=== PATIENT | female | born 1970 | race Asian ===

== ENCOUNTER → 2017-07-06 | Outpatient (CLI) | payer OTHER ==
--- NOTE | 2017-07-06 11:34 | RADIOLOGY REPORT (SQ) ---
EXAM DESCRIPTION: SHOULDER RIGHT 2 OR MORE VIEWS COMPLETED DATE/TIME: 07/06/2017 11:15 am REASON FOR STUDY: PAIN IN R SHOULDER M25.511 PAIN IN RIGHT SHOULDER COMPARISON: None. NUMBER OF VIEWS: Three views. TECHNIQUE: Internal rotation, external rotation, and Y view images acquired of the right shoulder. LIMITATIONS: None. FINDINGS: MINERALIZATION: Normal. BONES: No acute fracture or dislocation. No worrisome bone lesions. JOINTS: No dislocation. VISUALIZED LUNGS AND RIBS: No pneumothorax. No rib fracture. SOFT TISSUES: No radiopaque foreign body. OTHER: No other significant finding. IMPRESSION: NEGATIVE STUDY OF THE RIGHT SHOULDER. NO RADIOGRAPHIC EVIDENCE OF ACUTE INJURY. CONSIDE R MRI FOR FURTHER EVALUATION IF CLINICALLY INDICATED. TECHNICAL DOCUMENTATION: JOB ID: [id number] [employer]- All Rights Reserved
== END ==
LOC: RAD 10:49
PROVIDERS: ATTEND Pain Medicine Interventional Pain Medicine
DX: M25.511 Pain in right shoulder (principal)

== ENCOUNTER → 2017-07-30 | Outpatient (CLI) | payer OTHER ==
--- NOTE | 2017-07-30 14:18 | DRAGON STRESS TEST REPORT ---
EXERCISE TREADMILL TEST. DATE OF PROCEDURE: July 30, 2017 INDICATION: Patient with unspecified chest pain. Coronary risk factors: Hypertension, type 2 diabetes, dyslipidemia Resting EKG: Sinus rhythm, no baseline ST segment changes. Stress EKG: No significant changes noted with with exercise treadmill. Reason for termination: Dyspnea and fatigue. PROCEDURE REPORT: Baseline heart rate: 93 beats per minute with blood pressure of 168/82. Patient had no significant complaints at baseline. Patient was exercised on a standard West protocol. Patient exercised for total of 6 minutes and 10 seconds. Exercise was stopped because of fatigue and shortness of breath and patient request to stop the exercise. Patient denied any chest arm or neck discomfort during the exercise, at peak exercise or in recovery. If automatic blood pressure recorded and if felt not accurate manual blood pressure then were recorded at appropriate intervals. Peak heart rate: 111 bpm, 64 of predicted maximum. Peak blood pressure: 207/84 mmHg. Double product: Adequate kcal Exercise EKG: Showed some baseline artifact during exercise but no significant ST segment changes noted. CONCLUSIONS: Indeterminate stress test due to suboptimal heart rate response. Decreased exercise tolerance. Negative EKG changes with exercise. RECOMMENDATIONS: Recommend pharmacologic nuclear stress test. Aggressive risk factor modification, medical therapy. Consider cardiology consultation if clinically indicated. Jaelyn Madsen M.D., HASMUKH Asp Web Developer roofing apprentice, Board certified in cardiovascular diseases, Nuclear cardiology, Echocardiography Cardiac CT and cardiac MRI Ph. [phone] Ph. [phone] [facility]
== END ==
LOC: SP 08:44
PROVIDERS: ATTEND Internal Medicine
DX: R07.2 Precordial pain (principal); I10 Essential (primary) hypertension; E78.5 Hyperlipidemia, unspecified; E11.9 Type 2 diabetes mellitus without complications
CPT/HCPCS: 93017; 93306

== ENCOUNTER → 2017-08-03 | Outpatient (CLI) | payer OTHER ==
--- NOTE | 2017-08-03 15:35 | RADIOLOGY REPORT (SQ) ---
EXAM DESCRIPTION: MRI RT UPPER JOINT WITHOUT COMPLETED DATE/TIME: 08/03/2017 1:31 pm REASON FOR STUDY: PAIN IN R SHOULDER M25.511 PAIN IN RIGHT SHOULDER COMPARISON: Right shoulder plain films 07/06/2017, 05/08/2011 Right shoulder MRI 06/25/2013 TECHNIQUE: Right shoulder images acquired and stored on PACS. Multiplanar imaging to include fat sen sitive sequences such as T1, water sensitive sequences such as FST2/STIR, cartilage sensitive sequenc es such as FSPD/gradient-echo sequences. LIMITATIONS: Mild motion artifact FINDINGS: BONE MARROW AND CORTEX: No worrisome bone lesions or marrow replacement. No occult fractur es. JOINT OR BURSAL EFFUSION: No significant glenohumeral joint effusion. Small amount of fluid in the s ubacromial/subdeltoid bursa. GLENO-HUMERAL ARTICULATION: Normal articulation. No subluxation. No cystic change. No osteophytes or cartilage loss. ACROMION AND AC JOINT: Type 2 acromion with mild bony spurring and synovial thickening. Mild bony s purring along the undersurface of the acromion narrowing the subacromial space. These changes are be st shown on coronal image 10 and sagittal image 14. ROTATOR CUFF AND INTERVAL: Significant thickening and increased signal in the anterior half of the cedillo praspinatus tendon from tendinopathy. This is best shown on coronal images 6-10, axial images 3 thro ugh 6, and sagittal images 6-10. Infraspinatus, subscapularis intact. No rotator interval tear. No rotator interval thickening to suggest adhesive capsulitis. LABRUM AND BICEPS LABRAL COMPLEX: Intra-articular long head biceps tendon is thickened from tendino luca. No gross superior labral tear or paralabral cyst. REMAINDER OF LABRUM AND IGHL : No gross tear or paralabral cyst formation. Labral evaluation is less than optimal without joint distention. There is thickening of IGHL suggesting adhesive capsulitis. PERIARTICULAR AND ADJACENT SOFT TISSUES: No masses or abnormal nodes. OTHER: No other significant finding. IMPRESSION: Supraspinatus and intra-articular long head biceps tendinopathy Acromioclavicular joint arthropathy Findings suspicious for adhesive capsulitis TECHNICAL DOCUMENTATION: JOB ID: [id number] [email or web address]- All Rights Reserved
== END ==
LOC: RAD 12:42
PROVIDERS: ATTEND Pain Medicine Interventional Pain Medicine
DX: M12.811 Other specific arthropathies, not elsewhere classified, right shoulder (principal); M75.81 Other shoulder lesions, right shoulder

== ENCOUNTER → 2017-09-02 | Outpatient (CLI) | payer OTHER ==
[~2017-09-02] MED LIST: AMINOPHYLLINE INJ/PF 250 MG/10 ML SDV IV ONE; REGADENOSON INJ 0.4 MG/5 ML DISP.SYRIN IV ONE
--- NOTE | 2017-09-02 13:15 | DRAGON STRESS TEST REPORT ---
INTRAVENOUS LEXISCAN CARDIOLITE STRESS TEST USING SINGLE PHOTON EMMISION COMPUTERIZED TOMOGRAPHIC. DATE OF PROCEDURE: September 02, 2017 INDICATION : Chest pain CARDIAC RISK FACTORS: Diabetes, hypertension, dyslipidemia RESTING EKG: Sinus rhythm, no baseline ST segment changes noted STRESS EKG: No significant changes noted with LexiScan bolus REASON FOR TERMINATION: Protocol. PROCEDURE REPORT: Baseline heart rate 85 beats per minute with blood pressure of 152/76. Patient had no significant complaints. Heart rate at 2 minutes post bolus 97 with a blood pressure of 155/76. 3 minutes post bolus heart rate 94 with blood pressure of 156/75. No significant EKG changes were noted. Patient had no significant complaints during the procedure or postprocedure. Patient injected with Aminophyllin 75 mg at 3 minutes or later after Lexiscan bolus. CONCLUSIONS: Normal EKG and hemodynamic response to IV LexiScan. NUCLEAR DATA: At rest the patient was given 12.93 millicuries of technetium 99 sestamibi injected intravenously. As per protocol rest gated SPECT images were obtained. Subsequently the patient was given intravenous LexiScan at a dose of 0.4 mg in 5 mL intravenously, followed by flush with normal saline. Subsequently the stress dose of 35.8 millicuries of technetium 99 sestamibi was injected intravenously. As per protocol stress gated images were obtained. NUCLEAR INTERPRETATION: Both raw and processed data were used for interpretation. Visual, qualitative, computer-generated quantitative data was used. There was good myocardial uptake of technetium compound. Motion artifact and soft tissue attenuations were noted. Increased visceral uptake was noted. Increased breast attenuation artifact noted. Borderline decreased uptake noted and stress images in the mid anterior wall but is felt to be related to differences in breast attenuation artifact. No corresponding wall motion abnormalities were noted. No definitive areas of transient perfusion defect noted. No definitive areas of fixed perfusion defect or scars noted. EKG gated imaging showed LV EF at 61 %, rest and stress gated EF similar visually. T. I D. ratio was 1.16. Lung heart ratio noted to be within normal limits 0.41. No significant extracardiac and abnormal radiotracer activities were noted. RV free wall uptake was noted to be mildly increased. IMPRESSION: Also refer to comments under nuclear interpretation. Also test results needs to be interpreted in the context of pretest probability. 1. There is no definitive scintigraphic evidence of LexiScan induced myocardial ischemia. Mild decreased uptake noted in the mid anterior wall but is felt to be related to differences in breast attenuation artifact. Clinical correlation however is requested. 2. There is no definitive scintigraphic evidence of myocardial infarction/scar. 3. EKG gated imaging shows left ventricular ejection fraction of approximately 61 %. 4. Clinical correlation requested as occasionally single vessel disease or balanced ischemia could be missed. In approximately 10% of the cases Lexiscan may not cause adequate vasodilatory stress. RECOMMENDATIONS: Aggressive risk factor modification, medical therapy. Clinical correlation with echocardiogram derived ejection fraction. Inability to exercise by itself can lead to increased cardiovascular event risks. Consider cardiology consultation and or follow-up if clinically indicated. I AM AVAILABLE FOR CARDIOLOGY CONSULTATION AND FOLLOWUP IF REQUESTED BY PMD Jaelyn Madsen M.D., HASMUKH Risk Compliance Manager sign writer letterer or painter, Board certified in cardiovascular diseases, Nuclear cardiology, Echocardiography Cardiac CT and cardiac MRI Ph. [phone] [facility]ENTER[facility]
== END ==
LOC: RAD 06:40
PROVIDERS: ATTEND Internal Medicine
DX: R07.2 Precordial pain (principal)
CPT/HCPCS: 93017; 78452; A9500; J2785; J0280; Q9969

== ENCOUNTER → 2017-10-05 | Outpatient (CLI) | payer OTHER ==
[2017-10-06 07:42] LABS: HEPATITIS C VIRUS AB <0.1 s/co ratio (0.0-0.9)
[2017-10-06 16:38] LABS: A/G RATIO 0.8 (0.7-1.7); ALBUMIN 2 3.5 g/dL (2.9-4.4); ALPHA-1-ANTITRYPSIN SERUM 121 mg/dL (90-200); ALPHA-1-GLOBULIN 2 0.2 g/dL (0.0-0.4); GAMMA GLOBULIN 1.8 g/dL (0.4-1.8); PROTEIN TOTAL SERUM 7.7 g/dL (6.0-8.5)
== END ==
LOC: LAB 11:17
PROVIDERS: ATTEND Physician Assistant
DX: E88.09 Other disorders of plasma-protein metabolism, not elsewhere classified (principal); R94.5 Abnormal results of liver function studies
CPT/HCPCS: 36415; 82103; 82104; 82728; 83540; 83550; 84165; 86038; 86235; 86256; 86706; 86803; 86804

== ENCOUNTER → 2018-03-30 | Outpatient (CLI) | payer OTHER ==
--- NOTE | 2018-03-30 19:46 | XCELERA REPORT ---
[address] [address] Lower Extremity Arterial Evaluation Name: AMANDA HUIZAR Age: 48 yrs Gender: Female : 1970 Patient Status: Outpatient Patient Location: Study Date: 03/30/2018 11:17 AM Procedure: A color flow and duplex scan of the lower extremity arteries was performed on the right with velocity and waveform anaylsis. Reason For Study: MICHAEL VELAZQUEZD Ordering Physician: ZOHRA SAMANO PA-C Performed By: Asim Sanders Measurements and Calculations Right Left SEWER SEPARATION DESIGNER PSV 111.9 cm/sec Prox PFA PSV -135.8 cm/sec Prox SFA PSV -105.1 cm/sec Mid SFA PSV -107.0 cm/sec Dist SFA PSV -76.2 cm/sec Prox Pop A PSV 39.1 cm/sec Dist OWEN PSV 70.4 cm/sec Dist NITRO MAN PSV 57.5 cm/sec Matt Pedis PSV 15.7 -40.7 cm/sec Right Side Arterial Evaluation Normal velocity and triphasic waveforms noted from the Common Femoral artery to the Popliteal . Biphasic in the infrageniculate vessels. Monophasic in nthe Dorsalis Pedis. Well preserved velocities. 20-49 % stenosis at the below level arteries, sequential disease in the Dorsalis Pedis. Ankle Brachial index is 0.88. Left Side Arterial Evaluation Limited study, DAVID 1.00. Biphasic at the Dorsalis Pedis. Interpretation Summary Moderate hemodynamically significant lesions in the right lower extremity only, on duplex imaging, at rest. Limited study on the left suggests almost normal findings. : ZOHRA SAMANO PA-C > Fran Snow
== END ==
LOC: SP 10:46
PROVIDERS: ATTEND Physician Assistant
DX: I73.9 Peripheral vascular disease, unspecified (principal)
CPT/HCPCS: 93926

== ENCOUNTER → 2018-08-24 | Outpatient (CLI) | payer OTHER ==
--- NOTE | 2018-08-24 15:13 | RADIOLOGY REPORT (SQ) ---
EXAM DESCRIPTION: HIP RIGHT AP/LATERAL COMPLETED DATE/TIME: 08/24/2018 1:35 pm REASON FOR STUDY: PAIN IN RIGHT HIP M25.551 PAIN IN RIGHT HIP COMPARISON: None. NUMBER OF VIEWS: Two views. TECHNIQUE: AP pelvis and additional frog-leg view of the right hip. LIMITATIONS: None. FINDINGS: MINERALIZATION: Normal. RIGHT HIP: Subchondral cystic changes in the lateral aspect of the acetabulum of the right hip. No fracture or dislocation. LEFT HIP: No fracture or dislocation. Subchondral cystic changes in the lateral acetabulum of the le ft hip. PUBIS AND ISCHIUM: No fracture. PELVIS: No fracture. SACRUM: No fracture or dislocation. No worrisome bone lesions. LOWER LUMBAR SPINE: No fracture or dislocation. No worrisome bone lesions. No significant disc disea se. SOFT TISSUES: No findings. OTHER: Surgical metallic clips in the pelvic region. IMPRESSION: 1. Mild degenerative changes at the hips. No acute osseous findings. TECHNICAL DOCUMENTATION: JOB ID: [id number] [employer]- All Rights Reserved Reading location - IP/workstation name: [email or web address]
== END ==
LOC: RAD 12:56
PROVIDERS: ATTEND Pain Medicine Interventional Pain Medicine
DX: M25.551 Pain in right hip (principal)

== ENCOUNTER → 2018-12-13 | Outpatient (CLI) | payer OTHER ==
--- NOTE | 2018-12-13 14:31 | RADIOLOGY REPORT (SQ) ---
EXAM DESCRIPTION: NM GASTRIC EMPTYING STUDY COMPLETED DATE/TIME: 12/13/2018 11:39 am REASON FOR STUDY: GASTROPARESIS K31.84 GASTROPARESIS COMPARISON: Upper GI series 10/06/2015, 09/15/2012 Right upper quadrant ultrasound 05/11/2013 RADIONUCLIDE AND DOSE: 2.2 millicuries Tc-99m Sulfur Colloid. Scrambled egg sandwich The route of agent administration: Oral. TECHNIQUE: 1 minute serial static imaging performed at time of meal, 1 hour, 2 hours, 3 hours, and 4 hours as needed. Once stomach reaches 90% emptying, the test is complete. Image intensity values pl otted with respect to time with linear regression algorithm. LIMITATIONS: None. FINDINGS: Patient was observed for 4 hours. Immediate post meal serves as baseline. Gastric emptying at 30 minutes was 44%. Gastric emptying at 60 minutes was 70% Gastric emptying at 90 minutes was 83%. Gastric emptying at 120 minutes was 91%. Normal values: 60 minutes: 30-90% retained. If less than 30%, abnormally rapid emptying. If greater than 90%, del ayed gastric emptying. 120 minutes: <60% retained. If greater than 60%, delayed gastric emptying. 240 minutes: <10% retained. If greater than 10%, delayed gastric emptying. IMPRESSION: NORMAL GASTRIC EMPTYING. TECHNICAL DOCUMENTATION: JOB ID: [id number] [employer]- All Rights Reserved rev Reading location - IP/workstation name: [email or web address]
== END ==
LOC: RAD 07:45
PROVIDERS: ATTEND Surgery
DX: K31.84 Gastroparesis (principal)
CPT/HCPCS: 78264; A9541

== ENCOUNTER → 2019-02-08 | Outpatient (CLI) | payer OTHER ==
--- NOTE | 2019-02-08 15:56 | RADIOLOGY REPORT (SQ) ---
EXAM DESCRIPTION: MRI CERVICAL SPINE WITHOUT COMPLETED DATE/TIME: 02/08/2019 1:49 pm REASON FOR STUDY: M54.2 CERVICALGIA M54.2 CERVICALGIA COMPARISON: 08/05/2011 TECHNIQUE: Sagittal and Axial imaging includes T1, T2, STIR and gradient echo sequences. LIMITATIONS: None. FINDINGS: ALIGNMENT: There is reversal of the normal cervical lordosis. This has progressed since 2 011. VERTEBRAE: Intact. BONE MARROW: Normal. No marrow replacement or reactive changes. DISCS: There is loss of normal water signal throughout the cervical spine. HARDWARE: There is been anterior fusion at C5-C6. CORD AND BASE OF BRAIN: The cord maintains is normal signal intensity despite compression from calcif ication of the posterior longitudinal ligament. The posterior longitudinal ligament is also thickene d from C2 through C5. SOFT TISSUES: No soft tissue masses. C1-C2: No significant spinal stenosis. C2-C3: There is effacement anterior thecal sac secondary to calcification of the posterior longitudin al ligament neural foramina are patent. C3-C4: Moderate central canal stenosis. Bilateral foraminal narrowing left greater than right due to calcification of the posterior longitudinal ligament. C4-C5: Moderate to severe central stenosis in asymmetric narrowing of the left neural foramina second kirby to calcification of the posterior longitudinal ligament. C5-C6: Postsurgical changes. No high-grade central stenosis or foraminal narrowing. C6-C7: No significant spinal stenosis or exit foraminal stenosis. C7-T1: No significant spinal stenosis or exit foraminal stenosis. UPPER THORACIC: Incompletely imaged. No significant spinal stenosis or exit foraminal stenosis. OTHER: No other significant finding. IMPRESSION: Calcification of the posterior longitudinal ligament resulting and moderate to severe ce ntral stenosis from the C3-4 level through C4-C5. There is bilateral foraminal narrowing at C3-4 lef t greater than right. There is asymmetric narrowing of the left neural foramina at C4-C5. TECHNICAL DOCUMENTATION: JOB ID: [id number]- All Rights Reserved Reading location - IP/workstation name: [email or web address]
== END ==
LOC: RAD 12:44
PROVIDERS: ATTEND Orthopaedic Surgery
DX: M54.2 Cervicalgia (principal)
CPT/HCPCS: 72141

== ENCOUNTER → 2019-05-06 | Outpatient (CLI) | payer OTHER ==
[2019-05-06 12:21] LABS: HEMATOCRIT 44.2 % (36.0-47.0); MEAN CORPUSCULAR HEMOGLOBIN 29.9 pg (27.0-33.4); MEAN CORPUSCULAR HGB CONC 33.9 g/dL (32.0-36.0); MEAN CORPUSCULAR VOLUME 88 fl (80-97); PLATELET COUNT 294 10^3/uL (150-450); RED BLOOD COUNT 5.02 10^6/uL (3.72-5.28); RED CELL DISTRIBUTION WIDTH 13.8 % (11.5-14.0); WHITE BLOOD COUNT 9.4 10^3/uL (4.0-10.5)
[2019-05-06 12:30] LABS: INTERNATIONAL RATION (INR) 1.05; PROTHROMBIN TIME 14.2 SEC (11.4-15.4)
[2019-05-06 12:46] LABS: ANION GAP 10 (5-19); BLOOD UREA NITROGEN 15 mg/dL (7-20); CALCIUM 9.7 mg/dL (8.4-10.2); CARBON DIOXIDE 30 mmol/L (22-30); CHLORIDE 104 mmol/L (98-107); GLUCOSE 189 mg/dL (75-110); POTASSIUM 4.2 mmol/L (3.6-5.0); SODIUM 143.5 mmol/L (137-145)
== END ==
LOC: OD 11:38
PROVIDERS: ATTEND Internal Medicine Cardiovascular Disease
DX: I73.9 Peripheral vascular disease, unspecified (principal); I10 Essential (primary) hypertension
CPT/HCPCS: 36415; 80048; 83735; 85027; 85610

== ENCOUNTER → 2019-05-06 | Outpatient (CLI) | payer OTHER ==
--- NOTE | 2019-05-06 12:20 | RADIOLOGY REPORT (SQ) ---
EXAM DESCRIPTION: ANKLE LEFT COMPLETE COMPLETED DATE/TIME: 05/06/2019 12:02 pm REASON FOR STUDY: PAIN IN LEFT ANKLE AND JOINTS OF LEFT FOOT M25.572 PAIN IN LEFT ANKLE AND JOINTS OF LEFT FOOT COMPARISON: None. NUMBER OF VIEWS: Three views. TECHNIQUE: AP, lateral, and oblique radiographic images acquired of the left ankle. LIMITATIONS: None. FINDINGS: MINERALIZATION: Normal. BONES: Slight irregularity of both the medial and lateral malleoli. This may be from prior injury. No evidence of an acute fracture dislocation. JOINTS: No effusions. SOFT TISSUES: Soft tissue swelling medially. OTHER: Small calcaneal osteophytes are present. IMPRESSION: Soft tissue swelling medially. Slight irregularity of both the medial and lateral malle ivonne consistent with old injuries. No acute fracture. TECHNICAL DOCUMENTATION: JOB ID: [id number] [employer]- All Rights Reserved Reading location - IP/workstation name: [email or web address]
== END ==
LOC: OD 11:30
PROVIDERS: ATTEND Internal Medicine
DX: M25.572 Pain in left ankle and joints of left foot (principal)

== ENCOUNTER → 2019-06-08 | Outpatient (CLI) | payer OTHER ==
[2019-06-08 14:38] LABS: ABSOLUTE BASOPHILS # (AUTO) 0.1 10^3/uL (0.0-0.2); ABSOLUTE EOSINOPHILS # (AUTO) 0.2 10^3/uL (0.0-0.6); ABSOLUTE LYMPHOCYTES (AUTO) 2.1 10^3/uL (0.5-4.7); ABSOLUTE MONOCYTES (AUTO) 0.6 10^3/uL (0.1-1.4); ABSOLUTE NEUT (AUTO) 4.6 10^3/uL (1.7-8.2); BASOPHILS % (AUTO) 0.9 % (0-2); EOSINOPHILS % (AUTO) 3.2 % (0-6); HEMATOCRIT 46.9 % (36.0-47.0); HEMOGLOBIN 15.8 g/dL (12.0-15.5); LYMPHOCYTES % (AUTO) 28.1 % (13-45); MEAN CORPUSCULAR HEMOGLOBIN 29.1 pg (27.0-33.4); MEAN CORPUSCULAR HGB CONC 33.7 g/dL (32.0-36.0); MEAN CORPUSCULAR VOLUME 87 fl (80-97); MONOCYTES % (AUTO) 7.6 % (3-13); PLATELET COUNT 281 10^3/uL (150-450); RED BLOOD COUNT 5.43 10^6/uL (3.72-5.28); RED CELL DISTRIBUTION WIDTH 14.3 % (11.5-14.0); SEGMENTED NEUTROPHILS % (AUTO) 60.2 % (42-78); TOTAL CELLS COUNTED % (AUTO) 100 %; WHITE BLOOD COUNT 7.6 10^3/uL (4.0-10.5)
[2019-06-08 14:40] LABS: PROTHROMBIN TIME 12.1 SEC (11.4-15.4)
[2019-06-08 15:01] LABS: ANION GAP 10 (5-19); BLOOD UREA NITROGEN 21 mg/dL (7-20); CALCIUM 9.5 mg/dL (8.4-10.2); CARBON DIOXIDE 25 mmol/L (22-30); CHLORIDE 106 mmol/L (98-107); GLUCOSE 176 mg/dL (75-110); POTASSIUM 4.3 mmol/L (3.6-5.0)
== END ==
LOC: OD 13:46
PROVIDERS: ATTEND Internal Medicine Cardiovascular Disease
DX: I73.9 Peripheral vascular disease, unspecified (principal)
CPT/HCPCS: 36415; 80048; 83735; 85025; 85610

== ENCOUNTER 2020-03-25 12:29 | Emergency (ER) | payer OTHER ==
--- NOTE | 2020-03-25 12:50 | ER Document Report ---
ED Extremity Problem, Upper - General Chief Complaint: Arm Pain Stated Complaint: RIGHT HAND AND ARM PAIN Time Seen by Provider: 03/25/20 12:45 Primary Care Provider: FRANCK MURRY MD [Primary Care Provider] - Follow up as needed Mode of Arrival: Wheelchair Information source: Patient Notes: 50-year-old female presented to ED for complaint of pain and swelling to her right wrist hand and arm. She states it started on Thursday and is much worse today. She states she has a history of carpal tunnel syndrome. She states she has oxycodone for her chronic pain and she took it about 6 hours ago with no relief. She states she does have a history of carpal tunnel high blood pressure diabetes and neck surgery. She is on pain management. Will get x-ray of the wr ist and hand treat her with cock-up splint and then reassess her pain. Patient will also be given ice and elevation for her discomfort. TRAVEL OUTSIDE OF THE [place] IN LAST 30 DAYS: No - HPI Patient complains to provider of: Right, Hand, Wrist Onset: Other - Thursday Recent injury: No Where: Home, Indoors Quality of pain: Sharp, Throbbing Severity of pain: Severe Pain Level: 5 Exacerbated by: Movement, Exertion Relieved by: Nothing Similar symptoms previously: Yes Recently seen / treated by doctor: No - Related Data Allergies/Adverse Reactions: Iodinated Contrast Media [IV Dye, Iodine Containing] Allergy (Verified 03/25/20 12:39) ITCHING, HIVES Past Medical History - General Information source: Patient - Social History Smoking Status: Never Smoker Chew tobacco use (# tins/day): No Frequency of alcohol use: None Drug Abuse: None Family History: Reviewed & Not Pertinent Patient has homicidal ideation: No - Past Medical History Cardiac Medical History: Reports: Hx Hypertension - SINCE I993 Pulmonary Medical History: Reports: None EENT Medical History: Reports: None Endocrine Medical History: Reports: Hx Diabetes Mellitus Type 2 Renal/ Medical History: Reports: None Malignancy Medical History: Reports: None GI Medical History: Reports: None Musculoskeletal Medical History: Reports Hx Musculoskeletal Deformity, Reports Other - Carpal tunnel Skin Medical History: Reports None Psychiatric Medical History: Reports: None Traumatic Medical History: Reports: None Infectious Medical History: Reports: None Past Surgical History: Reports: Hx Hysterectomy, Hx Orthopedic Surgery - shoulder, cervical, Hx Tonsillectomy - REMOVE IN 1989 - Immunizations Hx Diphtheria, Pertussis, Tetanus Vaccination: Yes Review of Systems - Review of Systems Constitutional: No symptoms reported EENT: No symptoms reported Cardiovascular: No symptoms reported Respiratory: No symptoms reported Gastrointestinal: No symptoms reported Genitourinary: No symptoms reported Female Genitourinary: No symptoms reported Musculoskeletal: Other - Swelling and pain to the left wrist and hand Skin: No symptoms reported Hematologic/Lymphatic: No symptoms reported Neurological/Psychological: No symptoms reported -: Yes All other systems reviewed and negative Physical Exam - Vital signs Vitals: Temp Pulse Resp BP Pulse Ox 99.7 F 94 16 185/81 H 98 03/25/20 12:37 03/25/20 12:37 03/25/20 12:37 03/25/20 12:37 03/25/20 12:37 Interpretation: Normal - General General appearance: Appears well, Alert - HEENT Head: Normocephalic, Atraumatic Eyes: Normal Pupils: PERRL - Respiratory Respiratory status: No respiratory distress Chest status: Nontender Breath sounds: Normal Chest palpation: Normal - Cardiovascular Rhythm: Regular Heart sounds: Normal auscultation Murmur: No - Abdominal Inspection: Normal Distension: No distension Bowel sounds: Normal Tenderness: Nontender Organomegaly: No organomegaly - Back Back: Normal, Nontender - Extremities General upper extremity: Nontender, Normal temperature General lower extremity: Normal inspection, Nontender, Normal color, Normal ROM, Normal temperature, Normal weight bearing. No: Roxy's sign Wrist: Tender, Limited ROM - To pain Hand: Tender, No evidence of human bite, No evidence of FB, Swelling - Neurological Neuro grossly intact: Yes Cognition: Normal Orientation: AAOx4 Brutus Coma Scale Eye Opening: Spontaneous Brutus Coma Scale Verbal: Oriented Brutus Coma Scale Motor: Obeys Commands Brutus Coma Scale Total: 15 Speech: Normal Motor strength normal: LUE, RUE, LLE, RLE Sensory: Normal - Psychological Associated symptoms: Normal affect, Normal mood - Skin Skin Temperature: Warm Skin Moisture: Dry Skin Color: Normal Course - Re-evaluation Re-evalutation: 03/25/20 13:32 Discussed x-rays with patient. Discussed need to follow-up with chronic pain management doctor and or an account support specialist for her pain. Patient has oxycodone and she did not tizanidine at home. She states these are not helping her pain. She was given a cock-up splint and ice pack for her discomfort. - Vital Signs Vital signs: Temp Pulse Resp BP Pulse Ox 99.7 F 94 16 185/81 H 98 03/25/20 12:39 03/25/20 12:37 03/25/20 12:37 03/25/20 12:37 03/25/20 12:37 - Diagnostic Test Radiology reviewed: Image reviewed, Reports reviewed Procedures - Immobilization Right Wrist Time completed: 13:00 Immobilizer type: Cock-up Performed by: PCT Post-Proc Neuro Vasc Exam: Normal, Unchanged from pre-exam Alignment checked and good: Yes Discharge - Discharge Clinical Impression: Pain and swelling of right wrist, Pain in right hand Condition: Stable Disposition: HOME, SELF-CARE Additional Instructions: You were seen today for pain and swelling to the right hand and wrist. Your x-ray does not show any acute radiological injuries or swelling to the hand or wrist. You state you have a history of carpal tunnel and you are on chronic pain man agement. Chronic Pain Control Stress, inactivity, and depression make pain more severe regardless of the cause of the pain. Stress and poor physical condition can cause pain such as headaches and backache. Relaxation: Rest in a quiet place with your eyes closed for 20 minutes twice daily. Concentrate on a pleasant image, or simply "feel" your breathing. Clear your mind. Stress management: Deal with your "stressors." Either take action, or eliminate the stressor from your life. Don't let things hang over you. Accept those things you can't change. Nutrition: Eat small, balanced meals -- don't skip, don't overeat. Meals should be high-carbohydrate, low-sugar, low-fat. Exercise: Exercise helps painful conditions and eases stress. Get 30 minutes of moderate exercise, five days a week. Do an activity that does not flare your pain. Precautions: Pain which continues to disrupt daily activities, or which changes in nature, requires a medical evaluation. Pain Clinic referral is available. We do not manage chronic pain in the Emergency Department. We will try to appropriately help you through an acute flare of your chronic painful condition, but for on-going chronic pain that does not improve, you will need to see your private doctor or paint prepper. We do not provide repeated medication management of chronic painful conditions. If you wish, we can provide the name of local pain management physicians. Ice & Elevation Apply ice packs frequently against the painful area. Many different schedules are recommended, such as "20 minutes on, 20 minutes off" or "one hour ice, two hours rest." If you need to work, you may need to go longer between ice treatments. You should plan to have the area ice packed AT LEAST one-fourth of the time. The ice should be applied over the wrap, tape, or splint, or over a layer of cloth -- not directly against the skin. Some ice bags have a built-in cloth and can be put directly on the skin. Your injured part should be elevated as much as possible over the next 48 hours. Try to keep the injury above the level of the heart. Avoid use of the injured area. Elevation and rest will decrease the swelling. We have placed a cock-up splint onto the wrist will help to decrease the pain and movement. You will need to follow-up with an account support specialist and your pain management doctor for continued pain. FOLLOW-UP CARE: If you have been referred to a physician for follow-up care, call the physicians office for an appointment as you were instructed or within the next two days. If you experience worsening or a significant change in your symptoms, notify the physician immediately or return to the Emergency Department at any time for re-evaluation. Forms: Elevated Blood Pressure Referrals: FRANCK MURRY MD [Primary Care Provider] - Follow up as needed MAR NIX DO [ACTIVE STAFF] - Follow up as needed
--- NOTE | 2020-03-25 13:16 | RADIOLOGY REPORT (SQ) ---
EXAM DESCRIPTION: HAND RIGHT 3 VIEWS; WRIST RIGHT 3 VIEWS IMAGES COMPLETED DATE/TIME: 03/25/2020 11:58 am REASON FOR STUDY: Pain and swelling. No known injury. History of carpal tunnel surgery. COMPARISON: None. EXAM PARAMETERS: NUMBER OF VIEWS: Six views. TECHNIQUE: AP, lateral and oblique radiographic images acquired of the right hand and wrist. LIMITATIONS: None. FINDINGS: MINERALIZATION: Normal. BONES: No acute fracture or dislocation. No worrisome bone lesions. JOINTS: No effusions. SOFT TISSUES: No soft tissue swelling. No foreign body. OTHER: No other significant finding. IMPRESSION: No radiographic abnormality of the right hand or wrist. TECHNICAL DOCUMENTATION: JOB ID: [id number] 2010 [employer]- All Rights Reserved Reading location - IP/workstation name: [email or web address]
--- NOTE | 2020-03-25 13:16 | RADIOLOGY REPORT (SQ) ---
EXAM DESCRIPTION: HAND RIGHT 3 VIEWS; WRIST RIGHT 3 VIEWS IMAGES COMPLETED DATE/TIME: 03/25/2020 11:58 am REASON FOR STUDY: Pain and swelling. No known injury. History of carpal tunnel surgery. COMPARISON: None. EXAM PARAMETERS: NUMBER OF VIEWS: Six views. TECHNIQUE: AP, lateral and oblique radiographic images acquired of the right hand and wrist. LIMITATIONS: None. FINDINGS: MINERALIZATION: Normal. BONES: No acute fracture or dislocation. No worrisome bone lesions. JOINTS: No effusions. SOFT TISSUES: No soft tissue swelling. No foreign body. OTHER: No other significant finding. IMPRESSION: No radiographic abnormality of the right hand or wrist. TECHNICAL DOCUMENTATION: JOB ID: [id number] 2010 [employer]- All Rights Reserved Reading location - IP/workstation name: [email or web address]
[2020-03-25 13:25] VITALS: BP 154/71
== END 2020-03-25 13:32 | disposition home or self-care (01) ==
LOC: ER 12:29
DX: M79.641 Pain in right hand (principal); M25.531 Pain in right wrist; M79.89 Other specified soft tissue disorders; G89.29 Other chronic pain; Z79.891 Long term (current) use of opiate analgesic; I10 Essential (primary) hypertension; E11.9 Type 2 diabetes mellitus without complications; Z91.041 Radiographic dye allergy status; Z87.39 Personal history of other diseases of the musculoskeletal system and connective tissue
CPT/HCPCS: 99283

== ENCOUNTER → 2020-06-23 | Outpatient (CLI) | payer OTHER ==
[2020-06-23 10:22] LABS: HEMATOCRIT 44.9 % (36.0-47.0); HEMOGLOBIN 15.3 g/dL (12.0-15.5); MEAN CORPUSCULAR HEMOGLOBIN 30.3 pg (27.0-33.4); MEAN CORPUSCULAR HGB CONC 34.1 g/dL (32.0-36.0); MEAN CORPUSCULAR VOLUME 89 fl (80-97); PLATELET COUNT 288 10^3/uL (150-450); RED BLOOD COUNT 5.06 10^6/uL (3.72-5.28); RED CELL DISTRIBUTION WIDTH 14.4 % (11.5-14.0)
[2020-06-23 10:42] LABS: ANION GAP 8 (5-19); BLOOD UREA NITROGEN 23 mg/dL (7-20); CALCIUM 9.9 mg/dL (8.4-10.2); CARBON DIOXIDE 28 mmol/L (22-30); CHLORIDE 103 mmol/L (98-107); GLUCOSE 172 mg/dL (75-110); POTASSIUM 5.1 mmol/L (3.6-5.0)
[2020-06-24 07:29] LABS: ABSOLUTE MONOCYTES # (MANUAL) 0.4 10^3/uL (0.1-1.4); ANISOCYTOSIS 1+; BASOPHILS % (MANUAL) 0 % (0-2); EOSINOPHILS % (MANUAL) 4 % (0-6); LYMPHOCYTES % (MANUAL) 37 % (13-45); MONOCYTES % (MANUAL) 5 % (3-13); NUCLEATED RED BLOOD CELLS 1 /100 WBC (0); PLATELET COMMENT ADEQUATE; POLYCHROMASIA 1+; SEGMENTED NEUTROPHILS % (MAN) 54 % (42-78); TOTAL CELLS COUNTED 100
== END ==
LOC: OD 09:07
PROVIDERS: ATTEND Internal Medicine Cardiovascular Disease
DX: I73.9 Peripheral vascular disease, unspecified (principal); I10 Essential (primary) hypertension; E78.00 Pure hypercholesterolemia, unspecified; E78.5 Hyperlipidemia, unspecified
CPT/HCPCS: 36415; 80048; 83735; 85025; 85027

== ENCOUNTER 2020-06-29 13:27 | Emergency (ER) | payer OTHER ==
--- NOTE | 2020-06-29 14:55 | ER Document Report ---
ED Medical Screen (RME) - General Chief Complaint: Groin Pain Stated Complaint: LEG PAIN/POST OP CHECK Time Seen by Provider: 06/29/20 14:37 Primary Care Provider: FRANCK SNOW MD [Primary Care Provider] - Follow up as needed Mode of Arrival: Ambulatory TRAVEL OUTSIDE OF THE [place] IN LAST 30 DAYS: No - HPI Notes: 06/29/20 14:51 50-year-old female with a history of type 2 diabetes presents to the emergency room for complaints of left groin pain and SOB status post having a left femoral angiogram for PVD 2 days ago at [facility] by Dr. Snow. Patient states that she feels like "walking with a razor blades" every time she moves or walks which started yesterday along with SOB. This is the second time she has had an angiogram for PVD due to occlusion on the left. Patient is unsure if she has had a stent placed or not. Has been taking Plavix since her surgery. Denies any dysuria, urinary or bowel incontinence's, saddle anesthesia. Patient called surgeon's office they advised her to go to the nearest hospital for further evaluation. I have greeted and performed a rapid initial assessment of this patient. A comprehensive ED assessment and evaluation of the patient, analysis of test results and completion of the medical decision making process will be conducted by additional ED providers. PHYSICAL EXAMINATION: GENERAL: Well-appearing, well-nourished and in no acute distress. CV: s1, s2 regular LUNGS: No respiratory distress NEUROLOGICAL: Normal speech, normal gait. SKIN: Warm, Dry, normal turgor, no rashes or lesions noted. distal pulses +2 in right, distal pulses diminished in right. skin warm to touch, cap refill < 3 seconds bilaterally and equally ' Unable to palpate femoral pulses due to patient being wheelchair and unable to lay her flat in bed due to being in triage. Patient will need to be evaluated in the back for further complete physical examination 06/29/20 14:53 - Related Data Allergies/Adverse Reactions: Iodinated Contrast Media [IV Dye, Iodine Containing] Allergy (Verified 06/29/20 14:36) ITCHING, HIVES Past Medical History - Social History Chew tobacco use (# tins/day): No Drug Abuse: None - Past Medical History Cardiac Medical History: Reports: Hx Hypertension - SINCE I993 Endocrine Medical History: Reports: Hx Diabetes Mellitus Type 1, Hx Diabetes Mellitus Type 2 Musculoskeltal Medical History: Reports Hx Musculoskeletal Deformity Past Surgical History: Reports: Hx Hysterectomy, Hx Orthopedic Surgery - shoulder, cervical, Hx Tonsillectomy - REMOVE IN 1989 - Immunizations Hx Diphtheria, Pertussis, Tetanus Vaccination: Yes Physical Exam - Vital signs Vitals: Temp Pulse Resp BP Pulse Ox 98.7 F 81 18 139/59 H 100 06/29/20 13:31 06/29/20 13:31 06/29/20 13:31 06/29/20 13:31 06/29/20 13:31 Course - Vital Signs Vital signs: Temp Pulse Resp BP Pulse Ox 98.7 F 81 18 139/59 H 100 06/29/20 13:31 06/29/20 13:31 06/29/20 13:31 06/29/20 13:31 06/29/20 13:31 Doctor's Discharge - Discharge Referrals: FRANCK SNOW MD [Primary Care Provider] - Follow up as needed
[2020-06-29] MEDS ORDERED: HYDROCODONE/ACETAMINOPHEN 5-325 MG TABLET PO ONE (14:58)
[2020-06-29 15:23] LABS: INTERNATIONAL RATION (INR) 1.14; PROTHROMBIN TIME 14.8 SEC (11.4-15.4)
[2020-06-29 15:24] LABS: ABSOLUTE EOSINOPHILS # (AUTO) 0.2 10^3/uL (0.0-0.6); ABSOLUTE LYMPHOCYTES (AUTO) 1.7 10^3/uL (0.5-4.7); ABSOLUTE NEUT (AUTO) 7.2 10^3/uL (1.7-8.2); BASOPHILS % (AUTO) 0.4 % (0-2); EOSINOPHILS % (AUTO) 2.3 % (0-6); HEMATOCRIT 45.3 % (36.0-47.0); HEMOGLOBIN 15.2 g/dL (12.0-15.5); LYMPHOCYTES % (AUTO) 17.1 % (13-45); MEAN CORPUSCULAR HEMOGLOBIN 30.4 pg (27.0-33.4); MEAN CORPUSCULAR HGB CONC 33.6 g/dL (32.0-36.0); MEAN CORPUSCULAR VOLUME 90 fl (80-97); MONOCYTES % (AUTO) 9.6 % (3-13); PARTIAL THROMBOPLASTIN TIME 31.2 SEC (23.5-35.8); PLATELET COUNT 289 10^3/uL (150-450); RED BLOOD COUNT 5.01 10^6/uL (3.72-5.28); RED CELL DISTRIBUTION WIDTH 14.8 % (11.5-14.0); SEGMENTED NEUTROPHILS % (AUTO) 70.6 % (42-78); TOTAL CELLS COUNTED % (AUTO) 100 %; WHITE BLOOD COUNT 10.3 10^3/uL (4.0-10.5)
[2020-06-29 15:33] LABS: ALKALINE PHOSPHATASE 117 U/L (38-126); ANION GAP 10 (5-19); ASPARTATE AMINO TRANSFERASE 40 U/L (14-36); BILIRUBIN,TOTAL 0.5 mg/dL (0.2-1.3); BLOOD UREA NITROGEN 20 mg/dL (7-20); CALCIUM 9.6 mg/dL (8.4-10.2); CARBON DIOXIDE 28 mmol/L (22-30); CHLORIDE 101 mmol/L (98-107); GLUCOSE 276 mg/dL (75-110); POTASSIUM 4.6 mmol/L (3.6-5.0); TOTAL PROTEIN 7.7 g/dL (6.3-8.2)
--- NOTE | 2020-06-29 19:45 | RADIOLOGY REPORT (SQ) ---
EXAM DESCRIPTION: US LOWER EXTREMITY ARTERIES LIMITED/UNILATERAL/FOLLOW UP COMPLETED DATE/TME: 06/29/2020 14:48 CLINICAL HISTORY: 50 years, Female, had L angiogram x2dago, severe pain L groin COMPARISON: None. TECHNIQUE: Grayscale and Doppler imaging of the left lower extremity arterial system was performed. LIMITATIONS: None. FINDINGS: No significant plaque formation is identified on the images provided. There is biphasic waveform morphology within the common femoral and profundus femoris arteries. There is monophasic wave form morphology from the superficial femoral artery distally. There is no significant peak systolic velocity elevation. IMPRESSION: Waveform morphologic changes suggesting evidence of peripheral arterial disease. There is no abnormal uptake systolic velocity elevation to suggest a hemodynamically significant stenosis of greater than 50% at this time. copyright 2010 [employer]- All Rights Reserved
[2020-06-29] MEDS ORDERED: METHYLPREDNISOLONE INJ 125 MG/2 ML SDV IV ONE ×2 (19:54→22:47)
[2020-06-29] MEDS ORDERED: DIPHENHYDRAMINE HCL 50 MG/ML VIAL IV ONE ×2 (19:54→22:53)
[2020-06-29] MEDS ORDERED: ONDANSETRON HCL INJ/PF 4 MG/2 ML SDV IV ONE (19:54)
[2020-06-29] MEDS ORDERED: MORPHINE SULFATE 10 MG/ML INJ IV ONE (19:54)
--- NOTE | 2020-06-29 20:34 | EKG REPORT ---
SEVERITY:- BORDERLINE ECG - SINUS RHYTHM NONSPECIFIC ST-T CHANGES LATERAL LEADS : Confirmed by: Leighton Santos MD 29-Jun-2020 20:33:44
--- NOTE | 2020-06-29 22:36 | RADIOLOGY REPORT (SQ) ---
EXAM DESCRIPTION: US EXTREMITY VEINS UNILATERAL COMPLETED DATE/TME: 06/29/2020 21:05 CLINICAL HISTORY: 50 years, Female, LLE pain recent surg COMPARISON: None. TECHNIQUE: Transverse longitudinal sonographic images of the left lower extremity deep venous system LIMITATIONS: None. FINDINGS: No visible areas of thrombus. Normal compression and augmentation throughout. Doppler images are unremarkable IMPRESSION: Negative exam copyright 2010 [employer]- All Rights Reserved
--- NOTE | 2020-06-29 22:47 | ER Document Report ---
ED General - General Chief Complaint: Groin Pain Stated Complaint: LEG PAIN/POST OP CHECK Time Seen by Provider: 06/29/20 14:37 Primary Care Provider: FRANCK MURRY MD [ASSOCIATE] - Follow up as needed Mode of Arrival: Ambulatory TRAVEL OUTSIDE OF THE [place] IN LAST 30 DAYS: No - HPI Notes: 50-year-old female history of diabetes, PVD, on Eliquis for unknown indication presents with pain in left upper leg/thigh wound that started after having exploratory femoral angiogram in bilateral legs 2 days ago. Patient thinks that procedure was done for right leg and that left leg was done for diagnostic purposes but no therapy was performed. Patient did not have any pain in left leg prior to the procedure. Midlevel provider RME note says patient felt short of breath when her pain was bad when walking but patient denies this to me saying that she has had no chest pain or shortness of breath since this pain began. Patient denies any fever, back pain, trauma, change in her anticoagulation meds, lower extremity edema, rash, vomiting - Related Data Allergies/Adverse Reactions: Iodinated Contrast Media [IV Dye, Iodine Containing] Allergy (Verified 06/29/20 14:36) ITCHING, HIVES Past Medical History - General Information source: Patient, Relative - Social History Smoking Status: Former Smoker Chew tobacco use (# tins/day): No Drug Abuse: None Family History: Reviewed & Not Pertinent Patient has homicidal ideation: No - Past Medical History Cardiac Medical History: Reports: Hx Hypertension - SINCE I993 Endocrine Medical History: Reports: Hx Diabetes Mellitus Type 1, Hx Diabetes Mellitus Type 2 Musculoskeletal Medical History: Reports Hx Musculoskeletal Deformity Past Surgical History: Reports: Hx Hysterectomy, Hx Orthopedic Surgery - shoulder, cervical, Hx Tonsillectomy - REMOVE IN 1989 - Immunizations Hx Diphtheria, Pertussis, Tetanus Vaccination: Yes Review of Systems - Review of Systems Notes: REVIEW OF SYSTEMS: CONSTITUTIONAL : Denies fever, chills, or sweats. EENT: Denies recent cold/sinus symptoms, denies throat pain CARDIOVASCULAR: Denies chest pain, ALEXIS RESPIRATORY: Denies cough, denies shortness of breath. GASTROINTESTINAL: Denies abdominal pain, nausea/vomiting. GENITOURINARY: Denies difficulty urinating, painful urination. FEMALE GENITOURINARY: Denies abnormal vaginal bleeding, vaginal discharge. MUSCULOSKELETAL: Denies neck pain, back pain. SKIN: Denies rash or skin lesions. HEMATOLOGIC : Denies easy bruising or bleeding. LYMPHATIC: Denies swollen, enlarged glands. NEUROLOGICAL: Denies headache, denies change in gait. PSYCHIATRIC: Denies anxiety or stress or depression. Physical Exam - Vital signs Vitals: Temp Pulse Resp BP Pulse Ox 98.7 F 81 18 139/59 H 100 06/29/20 13:31 06/29/20 13:31 06/29/20 13:31 06/29/20 13:06/29/20 13:31 - Notes Notes: PHYSICAL EXAMINATION: GENERAL: Well-appearing, well-nourished mildly drowsy (2/2 IV benadryl) middle- aged woman in no acute distress HEAD: Atraumatic, normocephalic. EYES: Pupils equal round and appropriate constriction, sclera anicteric, conjunctiva are normal. ENT: nares patent, moist mucous membranes. NECK: Normal range of motion, supple without lymphadenopathy LUNGS: Breath sounds clear to auscultation bilaterally and equal. No wheezes rales or rhonchi. HEART: Regular rate and rhythm without murmurs ABDOMEN: Soft, nontender, no guarding, no masses, no CVAT EXTREMITIES: Normal range of motion, no pitting or edema. No cyanosis. Normal inspection. Patient has bilateral small surgical incisions <1cm at bilateral skin overlying femoral artery distribution below inguinal crease which have no discharge or surrounding erythema no tenderness. Palpable pulse on right DP and left DP pulse confirmed by Doppler. Bilateral toe cap refill less than 2 seconds. Normal leg inspection bilaterally, no edema, patient has tenderness on palpating frontomedial aspect of left leg between groin and knee with soft c ompartments, no erythema, no crepitus, no bony tenderness NEUROLOGICAL: Awake, alert, conversing appropriately, moves all extremities spontaneously. PSYCH: Normal mood, normal affect. SKIN: Warm, Dry, normal turgor, no rashes or lesions noted. Course - Re-evaluation Re-evalutation: 06/29/20 22:51 Pain in left leg between groin and knee after femoral artery access, rule out DVT, femoral artery aneurysm, retained surgical equipment. No sign of compartment syndrome, not consistent with necrotizing fasciitis, no signs of ar terial ischemia. Obtained venous and arterial ultrasounds without emergent findings so ordered CTA of lower extremity. We will continue to monitor patient and attempt to reach her vascular surgeon at [place] 06/30/20 00:51 Called control systems technician regarding delay on CTA reading, she says she spoke to radiology and they should be faxing over report and will pushing it through the computer any minute. 06/30/20 02:00 CT read received by fax, multiple areas of approximately 50% stenosis but no areas of critical stenosis. Exam remained stable throughout ED evaluation. With soft compartments and no neurologic or vascular deficits, no signs of infection. gave patient extensive return to ED precautions and instructed him to follow-up with vascular surgeon within 3 days. Patient and showed unde rstanding of follow-up instructions and return to ED instructions and denied having any other questions or concerns at time of discharge. Patient said that she had sufficient analgesia at home from vascular surgeon. - Vital Signs Vital signs: Temp Pulse Resp BP Pulse Ox 97.8 F 75 16 148/68 H 98 06/30/20 01:43 06/30/20 01:43 06/30/20 01:43 06/30/20 01:43 06/30/20 01:43 - Laboratory Result Diagrams: 06/29/20 14:59 06/29/20 14:59 Laboratory results interpreted by me: 06/29/20 06/29/20 14:59 14:59 RDW 14.8 H Glucose 276 H AST 40 H ALT 38 H - EKG Interpretation by Me Additional EKG results interpreted by me: 06/29/20 20:00 Heart rate 70, sinus rhythm, no significant ST elevations or depressions, QTC 432 Discharge - Discharge Clinical Impression: PVD (peripheral vascular disease) Leg pain Qualifiers: Laterality: left Qualified Code(s): M79.605 - Pain in left leg Disposition: HOME, SELF-CARE Additional Instructions: Peripheral Vascular Disease You have narrowing of the arteries in your arms and legs. This is called peripheral vascular disease. It's caused by "hardening of the arteries" and cholesterol deposits. This problem develops gradually due to high blood pressure, cigarette smoking, diabetes, or high cholesterol. Symptoms can include pain leg and foot cramps, leg pain while walking, and numbness and discoloration in the feet or toes. Vascular disease makes the feet and legs prone to infection, skin ulcers, and slow healing of injuries. A narrowed artery can suddenly block, resulting in complete loss of circulation to a foot or toe. An ultrasound or angiogram can show if the blockage can be treated with surgery. Non-surgical treatment includes regular exercise with brief periods of rest during the exercise. This improves the circulation. If you smoke, stop. Elevated cholesterol, high blood pressure, or high blood sugar should be treated. Medication can sometimes help blood get through the narrowed arteries. Take good care of your feet. Wear shoes that fit properly. Be very careful not to injure your feet. Even minor cuts need immediate care to prevent infection and skin ulcers. Call the doctor or return if you develop severe foot or leg pain, fever, signs of infection (redness, pain, swelling), or a foot or toe becomes weak, cold, pale, or dusky. You have narrowing of several of the arteries in your leg but no narrowing that currently requires you to have surgery or stay in the hospital. It is extremely important that you follow up closely with your vascular surgeon regarding this pain. If you have any worsening pain, numbness, weakness, spreading more, skin changes, fever, swelling, or any other worsening or alarming symptoms please return to the emergency department immediately. Referrals: FRANCK MURRY MD [ASSOCIATE] - Follow up as needed
[2020-06-29] MEDS ORDERED: FAMOTIDINE INJ/PF 20 MG/2 ML SDV IV ONE (22:53)
[2020-06-30 01:48] VITALS: BP 148/68
== END 2020-06-30 01:48 | disposition home or self-care (01) ==
LOC: ER 13:27
DX: I73.9 Peripheral vascular disease, unspecified (principal); R10.30 Lower abdominal pain, unspecified; M79.605 Pain in left leg; R06.02 Shortness of breath; I10 Essential (primary) hypertension; E11.9 Type 2 diabetes mellitus without complications; Z90.710 Acquired absence of both cervix and uterus; Z79.02 Long term (current) use of antithrombotics/antiplatelets
CPT/HCPCS: 93005; 96376; 99284; 96374; 96375; 36415; 82962; 85025; 85610; 85730; 80053; 84484; 93971; 93926; 73706; 93010; J1200; J2930; J2270; J2405; S0028

== ENCOUNTER → 2020-09-20 | Outpatient (CLI) | payer OTHER ==
--- NOTE | 2020-09-20 12:51 | RADIOLOGY REPORT (SQ) ---
EXAM DESCRIPTION: MRI CERVICAL SPINE WITHOUT IMAGES COMPLETED DATE/TIME: 09/20/2020 11:30 am REASON FOR STUDY: M54.12 RADICULOPATHY, CERVICAL REGION M54.12 RADICULOPATHY, CERVICAL REGION COMPARISON: 02/08/2019 TECHNIQUE: Sagittal and Axial imaging includes T1, T2, STIR and gradient echo sequences. LIMITATIONS: None. FINDINGS: ALIGNMENT: Normal. VERTEBRAE: Intact. BONE MARROW: Normal. No marrow replacement or reactive changes. DISCS: There is decreased T2 signal intensity. Disc spaces are narrowed from C4-C6. HARDWARE: Anterior plate at C5-6 with screws into the vertebral bodies. CORD AND BASE OF BRAIN: Normal in size and signal intensity. SOFT TISSUES: There is dense, thick calcification in the posterior longitudinal ligament from C2 to t he upper aspect of C5 C1-C2: No significant spinal stenosis. C2-C3: Central canal stenosis secondary to dense posterior longitudinal ligament calcification. Ther e does not appear to be significant deformity of the spinal cord. C3-C4: Marked central canal stenosis secondary to thickening calcification in the posterior longitudi nal ligament. This deforms the spinal cord slightly asymmetrically to the left. The cord measures 5 .1 mm in thickness in the left paracentral location. C4-C5: Marked central canal stenosis secondary to thickening and calcification of the posterior longi tudinal ligament that is slightly asymmetrical to the left. This results in significant deformity of the cord and narrowing of the neural foramina, left more than right. The cord measures 3.7 mm in th ickness to the left of the midline. C5-C6: No significant spinal stenosis or exit foraminal stenosis. C6-C7: Shallow disc/ osteophyte complex slightly asymmetrical to the left. There is no central canal or foraminal stenosis. C7-T1: No significant spinal stenosis or exit foraminal stenosis. UPPER THORACIC: Incompletely imaged. No significant spinal stenosis or exit foraminal stenosis. OTHER: No other significant finding. IMPRESSION: Surgical changes. 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 Milder central canal s tenosis at C2-3. There are foraminal stenoses at C4-5, left more than right. TECHNICAL DOCUMENTATION: JOB ID: [id number] [employer]- All Rights Reserved Reading location - IP/workstation name: [email or web address]
== END ==
LOC: RAD 10:41
PROVIDERS: ATTEND Internal Medicine
DX: M54.12 Radiculopathy, cervical region (principal); M48.02 Spinal stenosis, cervical region
CPT/HCPCS: 72141